=== PATIENT | female | born 1965 | race Caucasian/White ===

== ENCOUNTER 2018-01-11 04:47 | Emergency (ER) | payer OTHER, SELFPAY ==
--- NOTE | 2018-01-11 04:47 | DT_ITS ---
This patient was seen during an EMR downtime January 06, 2018 - January 13, 2018. This patient may have a combination of paper and electronic documentation or all paper documentation. All documentation is viewable within the e-chart portion of [employer] for each patient visit.
--- NOTE | 2018-01-11 13:11 | EKG12_ITS ---
Test Reason : SYNCOPE Blood Pressure : / mmHG Vent. Rate : 055 BPM Atrial Rate : 055 BPM P-R Int : 144 ms QRS Dur : 086 ms QT Int : 410 ms P-R-T Axes : 078 070 051 degrees QTc Int : 392 ms Sinus bradycardia Otherwise normal ECG Reconfirmed by CLARITA GIBBONS, ALBERTO ([id number]), supervising editor news reel MIKA BOYD ([id number]) on 02/21/2018 1:45:38 PM Referred By: [email or web address] Confirmed By:ALBERTO OTTO MD
[2018-01-14 06:45] LABS: Bacteria 0 SEEN /hpf (None Seen); Red Blood Cells-Urine 0 SEEN /hpf (0-5); White Blood Cells 0 SEEN /hpf (0-5)
[2018-01-14 07:07] LABS: Color, Urine Yellow (Yellow); Glucose, Dipstick NEGATIVE (Normal); Hyaline Cast 5-10 SEEN /lpf (0-5); Ketone-Dipstick Negative (Negative); Leukocyte Esterase-Dipstick 25 /ul (Negative); Mucous, Urine 1+ /hpf (<or=2+); Nitrite-Dipstick Negative (Negative); Occult Blood-Urine 10 /ul (Negative); Protein-Dipstick 30 mg/dl (Negative); Squamous Epithelial Cells - UA 0-5 SEEN /hpf (5-10); Urine Bilirubin Dipstick Negative (Negative); Urine Clarity Clear (Clear); Urine Urobilinogen Normal (Normal)
[2018-01-14 10:06] LABS: BUN 12 mg/dL (7-18); BUN/Creat Ratio 15.2 RATIO (10-20); Calcium,Total 8.3 mg/dL (8.5-10.1); Chloride 105 mmol/L (98-107); Creatinine, Serum 0.79 mg/dL (0.55-1.02); EST Glomerular Filtration Rate 82 mL/min (>60); Est Glom Filt Rate - Afr Amer 99 mL/min (>60); Glucose 100 mg/dL (74-106); Potassium 3.7 mmol/L (3.5-5.1); Sodium Level 142 mmol/L (136-145)
[2018-01-14 10:07] LABS: Anion Gap 9 (5-15); Thyroid Stim Hormone (TSH) 2.46 uIU/mL (0.358-3.74)
[2018-01-14 18:08] LABS: Hemoglobin 14.2 g/dl (12.0-15.0); Mean Corpuscular Hgb 31.6 pg (27.0-32.0); Mean Corpuscular Volume 95.8 fL (81-99); Mean Platelet Vol. 10.1 fl (6.2-12.0); POSITIVE COUNT NO; POSITIVE DIFFERENTIAL NO; POSITIVE MORPHOLOGY NO; Platelet Count 199 K/mm3 (150-450); RBC Distribution Width CV 12.4 % (11.6-14.6); Red Blood Count 4.49 M/mm3 (4.2-5.4)
[2018-01-14 18:09] LABS: Basophil% 0.6 % (0-1); Lymphocyte % 33.5 % (19-41); Monocyte% 10.1 % (0-10); Neutrophil # 2.67 X10^3/uL (2.7-7.7); Neutrophil % 53.8 % (47-70)
[2018-01-14 18:10] LABS: Absolute Lymphocyte Count 1.66 X10^3/ul (0.83-4.51); Absolute Neutrophil Count 2.7 X10^3/uL (2.0-7.7); Basophil# 0.03 X10^3/uL; Lymphocyte # 1.66 X10^3/ul (4.0)
== END 2018-01-11 07:10 | disposition home or self-care (01) ==
LOC: ED 01-12 12:21
PROVIDERS: Emergency Provider Emergency Medicine; Family Provider Family Medicine; PCP Family Medicine
DX: R55 Syncope and collapse (principal); E03.9 Hypothyroidism, unspecified; Z79.899 Other long term (current) drug therapy
CPT/HCPCS: 36415; 80048; 81001; 84443; 85025; 93005; 99285; P9612; A4216